=== PATIENT | female | born 1980 | race American Indian/Alaskan Native ===

== ENCOUNTER 2019-05-24 07:58 | Emergency (ER) | payer MEDICAID ==
[2019-05-24 08:04] VITALS: BP 155/95
[2019-05-24] MEDS ORDERED: IPRATROPIUM 0.02% NEBU 2.5 ML IH ONE (08:30)
[2019-05-24] MEDS ORDERED: ALBUTEROL 2.5 MG/3 ML NEBU IH ONE (08:30)
[2019-05-24] MEDS ORDERED: predniSONE 20 MG TAB PO ONE (08:30)
--- NOTE | 2019-05-24 08:34 | Emergency Department Report ---
- General Chief Complaint: Upper Respiratory Infection Stated Complaint: COLD/HEADACHE Time Seen by Provider: 05/24/19 08:26 Source: patient Mode of arrival: Ambulatory Limitations: No Limitations - History of Present Illness Initial Comments: The patient is a 38-year-old Female with past medical history of asthma who is presenting with 1 week of cough and congestion. Patient has had associated body aches and mild headache. Patient has had to increase her albuterol usage at home. Patient's states she's had intermittent fevers which are temporarily relieved with [id number]-[id number] medications. Patient states symptoms present for approximately one week and worsening. Patient has some mild shortness of breath. Associated Symptoms: fever, chills, myalgias, diaphoresis, headache, rhinorrhea, nasal congestion, cough, shortness of breath, right sweats. denies: sore throat, stiff neck, chest pain, abdominal pain, nausea, vomiting, diarrhea, rash, confusion, weight loss, epistaxis, hoarseness, ear pain Treatments Prior to Arrival: "cold medicine" - Related Data Previous Rx's Medication Instructions Recorded Last Taken Type ALBUTEROL Inhaler (OR & NICU) 2 puff IH QID PRN #1 inhalation 05/24/19 Unknown Rx [ProAir HFA Inhaler] Benzonatate [Tessalon Perles] 100 mg PO Q8HR #10 capsule 05/24/19 Unknown Rx predniSONE [Deltasone] 20 mg PO QDAY #5 tab 05/24/19 Unknown Rx Allergies Allergy/AdvReac Type Severity Reaction Status Date / Time No Known Allergies Allergy Verified 05/24/19 08:46 ED Review of Systems ROS: Stated complaint: COLD/HEADACHE Other details as noted in HPI Comment: All other systems reviewed and negative ED Past Medical Hx - Past Medical History Previous Medical History?: Yes Hx Hypertension: Yes - Surgical History Past Surgical History?: No - Social History Smoking Status: Never Smoker - Medications Home Medications: Home Medications Medication Instructions Recorded Confirmed Last Taken Type ALBUTEROL Inhaler (OR & NICU) 2 puff IH QID PRN #1 inhalation 05/24/19 Unknown Rx [ProAir HFA Inhaler] Benzonatate [Tessalon Perles] 100 mg PO Q8HR #10 capsule 05/24/19 Unknown Rx predniSONE [Deltasone] 20 mg PO QDAY #5 tab 12/18/19 Unknown Rx ED Physical Exam - General Limitations: No Limitations General appearance: alert, in no apparent distress - Head Head exam: Present: atraumatic, normocephalic - Eye Eye exam: Present: normal appearance - ENT ENT exam: Present: mucous membranes moist - Neck Neck exam: Present: normal inspection - Respiratory Respiratory exam: Present: wheezes, rhonchi. Absent: normal lung sounds bilaterally, respiratory distress, rales - Cardiovascular Cardiovascular Exam: Present: regular rate, normal rhythm, normal heart sounds. Absent: systolic murmur, diastolic murmur, rubs, gallop - GI/Abdominal GI/Abdominal exam: Present: soft, normal bowel sounds. Absent: distended, tenderness, guarding - Extremities Exam Extremities exam: Present: normal inspection - Back Exam Back exam: Present: normal inspection - Neurological Exam Neurological exam: Present: alert, oriented X3 - Psychiatric Psychiatric exam: Present: normal affect, normal mood - Skin Skin exam: Present: warm, dry, intact, normal color. Absent: rash ED Course Vital Signs 05/24/19 05/24/19 08:02 08:52 Temperature 99.9 F H Pulse Rate 96 H Respiratory 18 Rate Blood Pressure 155/95 O2 Sat by Pulse 96 96 Oximetry - Reevaluation(s) Reevaluation #1: 05/24/19 08:33 Patient presented with a mild wheeze and some rhonchi. Patient will be given albuterol Atrovent treatment and started on steroids. Because the patient's symptoms are worsening over the last week and not improving chest x-ray be done to rule out pneumonia. ED Medical Decision Making - Radiology Data CXR WNL - Medical Decision Making Patient is a 38-year-old Armenian female who is presenting with cough cold congestion wheezing. Patient likely with flulike illness which is exacerbating her asthma. Patient restarted on short course prednisone as well as albuterol. Critical care attestation.: If time is entered above; I have spent that time in minutes in the direct care of this critically ill patient, excluding procedure time. ED Disposition Clinical Impression: Flu-like symptoms Asthma exacerbation Qualifiers: Asthma severity: moderate Asthma persistence: unspecified Qualified Code(s): J45.901 - Unspecified asthma with (acute) exacerbation Disposition: TO HOME OR SELFCARE Is pt being admited?: No Does the pt Need Aspirin: No Condition: Stable Instructions: Asthma (ED), Influenza (ED) Referrals: PRIMARY CARE, [Primary Care Provider] - 3-5 Days Time of Disposition: 09:38
--- NOTE | 2019-05-24 09:04 | XRay Report ---
CHEST 2 VIEWS INDICATION / CLINICAL INFORMATION: cough, fever. COMPARISON: None available. FINDINGS: SUPPORT DEVICES: None. HEART / MEDIASTINUM: No significant abnormality. LUNGS / PLEURA: No significant pulmonary or pleural abnormality. No pneumothorax. ADDITIONAL FINDINGS: No significant additional findings. IMPRESSION: No significant abnormality Signer Name: Roger Guido MD FACR Signed: 05/24/2019 8:59 AM Workstation Name: [id number]
== END 2019-05-24 10:04 | disposition home or self-care (01) ==
LOC: ED 07:58
DX: J45.901 Unspecified asthma with (acute) exacerbation (principal); I10 Essential (primary) hypertension
CPT/HCPCS: 71046; 94644; 99283; J7512

== ENCOUNTER 2020-05-04 20:29 | Emergency (ER) | payer MEDICAID ==
[2020-05-04 21:51] LABS: Bacteria,Urine 1+ /HPF (Negative); Bilirubin,Urine NEG (Negative); Blood,Urine NEG (Negative); Color,Urine Yellow (Yellow); Hyaline Casts,Urine 5 /LPF; Mucus,Urine 2+ /HPF; Protein,Urine <15 mg/dL mg/dL (Negative); Urobilinogen,Urine < 2.0 mg/dL (<2.0)
[2020-05-04 21:56] LABS: HCG Qualitative,Urine Negative (Negative)
[2020-05-04] MEDS ORDERED: KETOROLAC 30 MG/1 ML INJ IV ONE (23:54)
[2020-05-04] MEDS ORDERED: ONDANSETRON 4 MG/2 ML INJ IV ONE (23:54)
[2020-05-04] MEDS ORDERED: MORPHINE 4 MG/1 ML INJ IV ONE (23:54)
--- NOTE | 2020-05-04 23:58 | Emergency Department Report ---
ED General Adult HPI - General Chief complaint: Abdominal Pain Stated complaint: SEVERE ABD PAIN Time Seen by Provider: 05/04/20 23:39 Source: patient Mode of arrival: Ambulatory Limitations: No Limitations - History of Present Illness Initial comments: 39-year-old -Mex[place] female patient presents with complaints of sudden onset of lower abdominal pain x 1 hour prior to arrival. She rates her pain as a 10/10 in severity and describes it as a severe cramping type pain that feels like a contraction. She states the pain is constant. She denies any nausea/vomiting/diarrhea, dysuria/hematuria/urinary frequency, vaginal discharge, dyspareunia, fever/chills/sweats, or history of abdominal surgeries. Patient states past medical history includes hypertension and PCOS. LMP 12/2019 per - Related Data Previous Rx's Medication Instructions Recorded Last Taken Type Albuterol Mdi (or & Nicu Only) 2 puff IH QID PRN #1 inhalation 05/24/19 Unknown Rx [ProAir HFA Inhaler] Benzonatate [Tessalon Perles] 100 mg PO Q8HR #10 capsule 05/24/19 Unknown Rx predniSONE [Deltasone] 20 mg PO QDAY #5 tab 05/24/19 Unknown Rx Acetaminophen/Codeine [Tylenol 1 tab PO Q8H PRN #8 tab 05/05/20 Unknown Rx /Codeine # 3 tab] Naproxen 500 mg PO BID PRN #14 tablet 05/05/20 Unknown Rx Allergies Allergy/AdvReac Type Severity Reaction Status Date / Time No Known Allergies Allergy Verified 05/24/19 08:46 ED Review of Systems ROS: Stated complaint: SEVERE ABD PAIN Other details as noted in HPI Constitutional: denies: chills, diaphoresis, fever, malaise, weakness ENT: denies: throat pain Respiratory: denies: cough, shortness of breath Cardiovascular: denies: chest pain Gastrointestinal: abdominal pain. denies: nausea, vomiting, diarrhea, constipation, hematemesis, melena, hematochezia Genitourinary: denies: urgency, dysuria, frequency, hematuria, discharge, abnorm al menses, dyspareunia Musculoskeletal: denies: back pain, arthralgia Skin: denies: change in color Neurological: denies: headache Hematological/Lymphatic: denies: easy bruising ED Past Medical Hx - Past Medical History Previous Medical History?: Yes Hx Hypertension: Yes Hx Asthma: Yes Additional medical history: PCOS - Surgical History Past Surgical History?: Yes Additional Surgical History: Right hand - Social History Smoking Status: Never Smoker Substance Use Type: None - Medications Home Medications: Home Medications Medication Instructions Recorded Confirmed Last Taken Type Albuterol Mdi (or & Nicu Only) 2 puff IH QID PRN #1 inhalation 05/24/19 Unknown Rx [ProAir HFA Inhaler] Benzonatate [Tessalon Perles] 100 mg PO Q8HR #10 capsule 05/24/19 Unknown Rx predniSONE [Deltasone] 20 mg PO QDAY #5 tab 05/24/19 Unknown Rx Acetaminophen/Codeine [Tylenol 1 tab PO Q8H PRN #8 tab 05/05/20 Unknown Rx /Codeine # 3 tab] Naproxen 500 mg PO BID PRN #14 tablet 05/05/20 Unknown Rx ED Physical Exam - General Limitations: No Limitations General appearance: alert, in no apparent distress, obese - Head Head exam: Present: atraumatic, normocephalic - Eye Eye exam: Present: normal appearance. Absent: scleral icterus - ENT ENT exam: Present: mucous membranes moist - Neck Neck exam: Present: normal inspection - Respiratory Respiratory exam: Present: normal lung sounds bilaterally. Absent: respiratory distress - Cardiovascular Cardiovascular Exam: Present: regular rate, normal rhythm - GI/Abdominal GI/Abdominal exam: Present: soft, tenderness (Suprapubic, periumbilical, right lower quadrant, left lower quadrant), normal bowel sounds. Absent: distended, guarding, rebound, rigid - Extremities Exam Extremities exam: Present: normal inspection - Back Exam Back exam: Present: normal inspection - Neurological Exam Neurological exam: Present: alert, oriented X3 - Psychiatric Psychiatric exam: Present: normal affect, normal mood - Skin Skin exam: Present: warm, dry, intact, normal color. Absent: rash, cyanosis, diaphoretic, erythema, ecchymosis ED Course Vital Signs 05/04/20 05/05/20 21:15 03:27 Temperature 98.3 F 98.2 F Pulse Rate 63 55 L Respiratory 18 18 Rate Blood Pressure 188/99 Blood Pressure 162/94 [Left] O2 Sat by Pulse 99 98 Oximetry ED Medical Decision Making - Lab Data Result diagrams: 05/05/20 00:13 05/05/20 00:13 Lab Results 05/04/20 05/05/20 05/05/20 Range/Units Unknown 00:13 00:13 WBC 6.2 (4.5-11.0) K/mm3 RBC 4.31 (3.65-5.03) M/mm3 Hgb 11.1 (10.1-14.3) gm/dl Hct 33.7 (30.3-42.9) % MCV 78 L (79-97) fl MCH 26 L (28-32) pg MCHC 33 (30-34) % RDW 15.5 H (13.2-15.2) % Plt Count 317 (140-440) K/mm3 Lymph % (Auto) 24.9 (13.4-35.0) % Cole % (Auto) 6.8 (0.0-7.3) % Eos % (Auto) 0.7 (0.0-4.3) % Baso % (Auto) 0.5 (0.0-1.8) % Lymph # (Auto) 1.6 (1.2-5.4) K/mm3 Cole # (Auto) 0.4 (0.0-0.8) K/mm3 Eos # (Auto) 0.0 (0.0-0.4) K/mm3 Baso # (Auto) 0.0 (0.0-0.1) K/mm3 Seg Neutrophils % 67.1 (40.0-70.0) % Seg Neutrophils # 4.2 (1.8-7.7) K/mm3 Sodium 138 (137-145) mmol/L Potassium 4.1 (3.6-5.0) mmol/L Chloride 103.6 (98-107) mmol/L Carbon Dioxide 24 (22-30) mmol/L Anion Gap 15 mmol/L BUN 11 (7-17) mg/dL Creatinine 0.9 (0.6-1.2) mg/dL Estimated GFR > 60 ml/min BUN/Creatinine Ratio 12 % Glucose 111 H (65-100) mg/dL Calcium 9.1 (8.4-10.2) mg/dL Total Bilirubin < 0.20 (0.1-1.2) mg/dL AST 21 (5-40) units/L ALT 18 (7-56) units/L Alkaline Phosphatase 69 (35-129) units/L Total Protein 7.6 (6.3-8.2) g/dL Albumin 3.9 (3.9-5) g/dL Albumin/Globulin Ratio 1.1 % Lipase (13-60) units/L Urine Color Yellow (Yellow) Urine Turbidity Clear (Clear) Urine pH 5.0 (5.0-7.0) Ur Specific [place] 1.025 (1.003-1.030) Urine Protein <15 mg/dl (Negative) mg/dL Urine Glucose (UA) Neg (Negative) mg/dL Urine Ketones Neg (Negative) mg/dL Urine Blood Neg (Negative) Urine Nitrite Neg (Negative) Urine Bilirubin Neg (Negative) Urine Urobilinogen < 2.0 (<2.0) mg/dL Ur Leukocyte Esterase Neg (Negative) Urine WBC (Auto) 2.0 (0.0-6.0) /HPF Urine RBC (Auto) 1.0 (0.0-6.0) /HPF U Epithel Cells (Auto) 3.0 (0-13.0) /HPF Urine Bacteria (Auto) 1+ (Negative) /HPF Hyaline Casts 5 /LPF Urine Mucus 2+ /HPF Urine HCG, Qual Negative (Negative) 05/05/20 Range/Units 00:13 WBC (4.5-11.0) K/mm3 RBC (3.65-5.03) M/mm3 Hgb (10.1-14.3) gm/dl Hct (30.3-42.9) % MCV (79-97) fl MCH (28-32) pg MCHC (30-34) % RDW (13.2-15.2) % Plt Count (140-440) K/mm3 Lymph % (Auto) (13.4-35.0) % Cole % (Auto) (0.0-7.3) % Eos % (Auto) (0.0-4.3) % Baso % (Auto) (0.0-1.8) % Lymph # (Auto) (1.2-5.4) K/mm3 Cole # (Auto) (0.0-0.8) K/mm3 Eos # (Auto) (0.0-0.4) K/mm3 Baso # (Auto) (0.0-0.1) K/mm3 Seg Neutrophils % (40.0-70.0) % Seg Neutrophils # (1.8-7.7) K/mm3 Sodium (137-145) mmol/L Potassium (3.6-5.0) mmol/L Chloride (98-107) mmol/L Carbon Dioxide (22-30) mmol/L Anion Gap mmol/L BUN (7-17) mg/dL Creatinine (0.6-1.2) mg/dL Estimated GFR ml/min BUN/Creatinine Ratio % Glucose (65-100) mg/dL Calcium (8.4-10.2) mg/dL Total Bilirubin (0.1-1.2) mg/dL AST (5-40) units/L ALT (7-56) units/L Alkaline Phosphatase (35-129) units/L Total Protein (6.3-8.2) g/dL Albumin (3.9-5) g/dL Albumin/Globulin Ratio % Lipase 21 (13-60) units/L Urine Color (Yellow) Urine Turbidity (Clear) Urine pH (5.0-7.0) Ur Specific [place] (1.003-1.030) Urine Protein (Negative) mg/dL Urine Glucose (UA) (Negative) mg/dL Urine Ketones (Negative) mg/dL Urine Blood (Negative) Urine Nitrite (Negative) Urine Bilirubin (Negative) Urine Urobilinogen (<2.0) mg/dL Ur Leukocyte Esterase (Negative) Urine WBC (Auto) (0.0-6.0) /HPF Urine RBC (Auto) (0.0-6.0) /HPF U Epithel Cells (Auto) (0-13.0) /HPF Urine Bacteria (Auto) (Negative) /HPF Hyaline Casts /LPF Urine Mucus /HPF Urine HCG, Qual (Negative) - Radiology Data Radiology results: report reviewed interpreted by me: Pelvic Ultrasound HISTORY: Acute pelvic pain, history of PCOS. TECHNIQUE: Grayscale and color imaging performed. COMPARISON: None FINDINGS: Uterus measures 11.5 x 9.1 x 8.1 cm with endometrial echo complex difficult to visualize because it is displaced by a heterogeneous rounded posterior uterine mass likely representing a fibroid measuring 5.5 cm in maximal dimension. There is a simple cyst in the right ovary measuring 2.6 cm in maximal dimension. Ovaries are otherwise unremarkable. No appreciable pelvic free fluid. IMPRESSION: 1. Large posterior uterine body mass, most likely a fibroid. 2. Simple right ovarian cyst. - Medical Decision Making 39-year-old -[place] female patient presents with complaints of sudden onset of lower abdominal pain x 1 hour prior to arrival. She rates her pain as a 10/10 in severity and describes it as a severe cramping type pain that feels like a contraction. She states the pain is constant. She denies any nausea/vomiting/diarrhea, dysuria/hematuria/urinary frequency, vaginal discharge, dyspareunia, fever/chills/sweats, or history of abdominal surgeries. Patient states past medical history includes hypertension and PCOS. LMP 12/2019 per patient Patient states pain has resolved with meds given here in ED. No significant abnormalities are noted on labs. Ultrasound shows large 5.5 cm fibroid-suspect this is patient's cause of pain. Recommend follow-up with [facility] within 2 to 3 days. Discussed signs and symptoms that should prompt immediate return to the emergency department in detail patient who verbalizes understanding. Critical care attestation.: If time is entered above; I have spent that time in minutes in the direct care of this critically ill patient, excluding procedure time. ED Disposition Clinical Impression: Lower abdominal pain, Uncontrolled hypertension Uterine fibroid Qualifiers: Uterine leiomyoma location: unspecified location Qualified Code(s): D25.9 - Leiomyoma of uterus, unspecified Disposition: DC-01 TO HOME OR SELFCARE Is pt being admited?: No Condition: Stable Instructions: Abdominal Pain, Adult, Uterine Fibroids, [id number], Abdominal Pain (ED), Hypertension (ED) Prescriptions: Naproxen 500 mg PO BID PRN #14 tablet PRN Reason: Pain, Moderate (4-6) Acetaminophen/Codeine [Tylenol /Codeine # 3 tab] 1 tab PO Q8H PRN #8 tab PRN Reason: Pain , Severe (7-10) Referrals: [facility] [Provider Group] - 2-3 Days Forms: Work/School Release Form(ED)
[2020-05-05 00:34] LABS: Basophils % (Auto) 0.5 % (0.0-1.8); Eosinophils % (Auto) 0.7 % (0.0-4.3); Hematocrit 33.7 % (30.3-42.9); Hemoglobin 11.1 gm/dl (10.1-14.3); Lymphocytes # (Auto) 1.6 K/mm3 (1.2-5.4); Lymphocytes % (Auto) 24.9 % (13.4-35.0); Mean Corpuscular HGB Conc 33 % (30-34); Mean Corpuscular Volume 78 fl (79-97); Monocytes # (Auto) 0.4 K/mm3 (0.0-0.8); Monocytes % (Auto) 6.8 % (0.0-7.3); Platelet Count 317 K/mm3 (140-440); Red Blood Count 4.31 M/mm3 (3.65-5.03); Red Cell Distribution Width 15.5 % (13.2-15.2)
[2020-05-05 00:55] LABS: Alanine Aminotransferase 18 units/L (7-56); Albumin 3.9 g/dL (3.9-5); BUN/Creatinine Ratio 12; Blood Urea Nitrogen 11 mg/dL (7-17); Calcium 9.1 mg/dL (8.4-10.2); Hemolysis Index 34
--- NOTE | 2020-05-05 02:10 | Ultrasound Report ---
Pelvic Ultrasound HISTORY: Acute pelvic pain, history of PCOS. TECHNIQUE: Grayscale and color imaging performed. COMPARISON: None FINDINGS: Uterus measures 11.5 x 9.1 x 8.1 cm with endometrial echo complex difficult to visualize be cause it is displaced by a heterogeneous rounded posterior uterine mass likely representing a fibroid measuring 5.5 cm in maximal dimension. There is a simple cyst in the right ovary measuring 2.6 cm in maximal dimension. Ovaries are otherwise unremarkable. No appreciable pelvic free fluid. IMPRESSION: 1. Large posterior uterine body mass, most likely a fibroid. 2. Simple right ovarian cyst. Signer Name: Julian Álvarez MD Signed: 05/05/2020 2:06 AM Workstation Name: [id number]
[2020-05-05 03:33] VITALS: BP 162/94
== END 2020-05-05 03:30 | disposition home or self-care (01) ==
LOC: ED 20:29
DX: D25.9 Leiomyoma of uterus, unspecified (principal); R10.30 Lower abdominal pain, unspecified; I10 Essential (primary) hypertension; J45.909 Unspecified asthma, uncomplicated; Z98.890 Other specified postprocedural states; Z79.899 Other long term (current) drug therapy
CPT/HCPCS: 36415; 76830; 80053; 81001; 81025; 83690; 85025